=== PATIENT | male | born 1950 | race Caucasian/White ===

== ENCOUNTER 2019-08-14 12:33 | Emergency (ER) | payer MEDICARE, OTHER ==
[2019-08-14] MEDS ORDERED: cefTRIAXone\\ROCEPHIN 2 GM VIAL ONE (13:27)
[2019-08-14] MEDS ORDERED: Azithromycin 500 MG VIAL ONE (13:27)
[2019-08-14] MEDS ORDERED: Sodium Chloride 0.9% 100 ML ONE (13:29)
[2019-08-14] MEDS ORDERED: Sterile Water 20 ML ONE (13:29)
[2019-08-14] MEDS ORDERED: Enoxaparin Sodium 100 MG/ML SYRINGE ONE (13:31)
[2019-08-14] MEDS ORDERED: Aggrastat 12.5 MG/250 ML 0 ML ONE (13:33)
[2019-08-14] MEDS ORDERED: Ondansetron PF 4 MG/2 ML Vial ONE (13:33)
[2019-08-14 13:38] LABS: #Lymphocytes 0.6 thou/uL (1.20-3.40); #Monocytes 0.2 thou/uL (0.11-0.59); #Neutrophils 3.6 thou/uL (1.40-6.50); %Basophils 0.4 % (0.0-1.0); %Eosinophils 0.1 % (0.0-10.0); %Lymphocytes 12.6 % (21.0-51.0); %Monocytes 5.5 % (0.0-10.0); %Neutrophils 81.4 % (42.0-75.0); Hemoglobin 14.8 g/dL (14.0-18.0); Mean Corpuscular HGB CONC 32.7 g/dL (32.0-36.0); Mean Corpuscular Hemoglobin 30.7 pg (27.0-31.0); Mean Corpuscular Volume 94.1 fL (78.0-98.0); Mean Platelet Volume 9.2 fL (7.4-10.4); Platelet Count 136 thou/uL (130-400); RBC Distribution Width 12.1 % (11.5-14.5); Red Blood Cell (RBC) Count 4.82 mill/uL (4.70-6.10); White Blood Cell (WBC) Count 4.4 thou/uL (4.8-10.8)
[2019-08-14 13:55] LABS: ALT (SGPT) 94 U/L (8-55); AST (SGOT) 110 U/L (5-34); Albumin 3.8 g/dL (3.4-4.8); Alkaline Phosphatase 65 U/L (40-110); Anion Gap 17 mmol/L (10-20); BUN (Urea Nitrogen) 15 mg/dL (8.4-25.7); Bilirubin, Total 0.6 mg/dL (0.2-1.2); Calc. Creatinine Clearance 0 mL/min (70-130); Calcium 8.2 mg/dL (7.8-10.44); Carbon Dioxide 22 mmol/L (23-31); Chloride 106 mmol/L (98-107); Estimated GFR-MDRD 72; Globulin 3.1 g/dL (2.4-3.5); Glucose 123 mg/dL (80-115); Potassium 3.8 mmol/L (3.5-5.1); Protein, Total 6.9 g/dL (5.8-8.1); Sodium 141 mmol/L (136-145)
--- NOTE | 2019-08-15 06:54 | RAD ---
PORTABLE CHEST: DATE: 08/14/2019. FINDINGS: An AP portable film at 1345 shows a normal-sized heart given body habitus and A projection. There is no pulmonary edema or pleural effusion. The lung bases seem somewhat patchy in appearance. There a re probably some basilar infiltrates here. See CT report to follow. IMPRESSION: Probable patchy basilar infiltrate. POS: HOME
[2019-08-16 12:17] LABS: SARS-CoV-2 MS2 Positive; SARS-CoV-2 N Gene Positive; SARS-CoV-2 S Gene Positive; SARS-CoV-2 orf1ab Positive
== END 2019-08-14 14:40 | disposition short-term general hospital (02) ==
LOC: BURERS 12:33
DX: A41.89 Other specified sepsis (principal); U07.1 COVID-19; J12.89 Other viral pneumonia; E11.9 Type 2 diabetes mellitus without complications; E78.5 Hyperlipidemia, unspecified; Z79.899 Other long term (current) drug therapy
CPT/HCPCS: 71045; 80053; 83605; 84484; 85025; 85379; 87040; 87635; 87804; 93005; 94760; J0456; J0696; J1650; J2405; J3246; J3490; U0003